=== PATIENT | female | born 1970 | race Caucasian/White ===

== ENCOUNTER 2017-01-08 09:09 | Emergency (ER) | payer BC ==
[~2017-01-08] VITALS: Ht 162.6 cm; Wt 62.1 kg
[~2017-01-08 09:09] MED LIST: BCP TD; LORTAB 5/500 501 TAB PO; VITAMINS
[2017-01-08 09:16] VITALS: BP 103/65; PULSE 72; TEMP 97.9
[2017-01-08] MEDS ORDERED: PAXIL 20MG20 MG PO (09:22)
[2017-01-08] MEDS ORDERED: [UNRECOGNIZED DRUG - REMARK] PO (09:23)
[2017-01-08 10:13] LABS: PH 5 (5-8); SQUAMOUS EPITHELIAL None Seen /hpf; URINE APPEARANCE Turbid; URINE BACTERIA Rare /hpf; URINE BILIRUBIN Negative (NEGATIVE); URINE BLOOD 3+ (NEGATIVE); URINE COLOR Amber; URINE GLUCOSE Negative (NEGATIVE); URINE KETONE Negative (NEGATIVE); URINE RBC >50 /hpf; URINE UROBILINOGEN Negative (NEGATIVE)
[2017-01-08 10:14] LABS: URINE WBC >50 /hpf
[2017-01-08 10:56] LABS: BASO % 0.3 % (0.0-2.0); GRAN # 10.8 (1.4-6.5); GRAN % 86.4 % (42.2-75.2); LYMPH # 0.8 (1.2-3.4); LYMPH % 6.2 % (20.0-51.0); MEAN CELL VOLUME 93 fl (80.0-100.0); MEAN CORPUSCULAR HGB CONC 34 g/dl (33.0-37.0); MEAN PLATELET VOLUME 10.1 fl (7.4-10.4); MONO # 0.8 (0.1-0.6); MONO % 6.6 % (1.7-9.3); PLATELET COUNT 217 K/mm3 (130-400); RED BLOOD COUNT 3.72 M/mm3 (4.10-5.30); REDCELL DISTRIBUTION WIDTH-CV 12.6 % (11.5-14.5); WHITE BLOOD COUNT 12.5 K/mm3 (4.8-10.8)
[2017-01-08 11:02] LABS: HEMATOCRIT 34.6 % (37.0-47.0); HEMOGLOBIN 11.7 g/dl (12.5-16.0); MEAN CORPUSCULAR HEMOGLOBIN 31 pg (27.0-31.0)
[2017-01-08] MEDS ORDERED: CEFTIN 250250 MG/TAB PO (11:21)
[2017-01-08] MEDS ORDERED: PYRIDIUM200 M1 PO (11:36)
[2017-01-08 12:18] LABS: ADJUSTED CALCIUM 9.5 mg/dL (8.4-10.2); ALBUMIN 3.7 gm/dL (3.5-5.0); BILIRUBIN,TOTAL 0.9 mg/dL (0.0-1.0); C-REACTIVE PROTEIN 0.9 mg/dL (0.0-0.9); CALCIUM 9.3 mg/dL (8.4-10.2); CREATININE, serum 0.6 mg/dL (0.52-1.25); TOTAL PROTEIN 6.5 gm/dL (6.4-8.2)
[2017-01-08 12:45] LABS: CHLAMYDIA/TRACH by PCR Female NOT DETECTED; NEISSERIA GON by PCR Female NOT DETECTED
== END 2017-01-08 12:08 | disposition home or self-care (01) ==
LOC: COL.ER 09:09
PROVIDERS: Physician Assistant
DX: N39.0 Urinary tract infection, site not specified (principal); Z32.02 Encounter for pregnancy test, result negative
CPT/HCPCS: J0696; J1885

== ENCOUNTER → 2017-08-07 | Outpatient (CLI) | payer BC ==
[~2017-08-07] MED LIST changes: +CEFTIN 250250 MG/TAB PO; +PAXIL 20MG20 MG PO; +PYRIDIUM200 M1 PO; +[UNRECOGNIZED DRUG - REMARK] PO
== END ==
LOC: MC.RAD 11:20
DX: Z12.31 Encounter for screening mammogram for malignant neoplasm of breast (principal); N64.89 Other specified disorders of breast

== ENCOUNTER → 2017-08-14 | Outpatient (CLI) | payer BC | LOC: MC.RAD 10:59 | DX: N64.89 Other specified disorders of breast (principal) ==

== ENCOUNTER 2017-09-10 21:21 | Emergency (ER) | payer SELFPAY ==
[~2017-09-10] VITALS: Ht 162.6 cm; Wt 70.5 kg
[2017-09-10 21:24] VITALS: BP 117/79; PULSE 73; TEMP 97.9
[2017-09-10] MEDS ORDERED: TRI-SPRINTEC 281 TAB (22:34)
== END 2017-09-10 22:42 | disposition home or self-care (01) ==
LOC: COL.ER 21:21
DX: S63.91XA Sprain of unspecified part of right wrist and hand, initial encounter (principal); S40.021A Contusion of right upper arm, initial encounter; W23.0XXA Caught, crushed, jammed, or pinched between moving objects, initial encounter; Y92.89 Other specified places as the place of occurrence of the external cause; Y99.0 Civilian activity done for income or pay

== ENCOUNTER → 2019-08-15 | Outpatient (CLI) | payer BC ==
[~2019-08-15] MED LIST changes: +TRI-SPRINTEC 281 TAB
== END ==
LOC: COL.RAD 07:16
DX: M48.02 Spinal stenosis, cervical region (principal); M54.12 Radiculopathy, cervical region

== ENCOUNTER → 2019-11-02 | Outpatient (CLI) | payer BC | LOC: ZCOL.LAB 14:45 | DX: Z20.828 Contact with and (suspected) exposure to other viral communicable diseases (principal) ==

== ENCOUNTER → 2019-11-24 | Outpatient (CLI) | payer BC | LOC: MC.RAD 09:25 | DX: N63.20 Unspecified lump in the left breast, unspecified quadrant (principal); Z80.3 Family history of malignant neoplasm of breast ==

== ENCOUNTER 2020-06-12 18:01 | Emergency (ER) | payer BC ==
[~2020-06-12] VITALS: Ht 162.6 cm; Wt 63.6 kg
[2020-06-12 18:04] VITALS: TEMP 98.3
[2020-06-12 20:16] VITALS: BP 134/80; PULSE 72
== END 2020-06-12 20:20 | disposition home or self-care (01) ==
LOC: COL.ER 18:01
DX: S86.911A Strain of unspecified muscle(s) and tendon(s) at lower leg level, right leg, initial encounter (principal); Z91.048 Other nonmedicinal substance allergy status; W01.0XXA Fall on same level from slipping, tripping and stumbling without subsequent striking against object, initial encounter; X50.1XXA Overexertion from prolonged static or awkward postures, initial encounter; Y93.01 Activity, walking, marching and hiking; Y92.410 Unspecified street and highway as the place of occurrence of the external cause
CPT/HCPCS: L1846

== ENCOUNTER → 2020-07-05 | Outpatient (CLI) | payer BC | LOC: MC.RAD 12:59 | DX: Z12.31 Encounter for screening mammogram for malignant neoplasm of breast (principal) ==

== ENCOUNTER 2021-02-18 20:19 | Emergency (ER) | payer BC ==
[~2021-02-18] VITALS: Ht 162.6 cm; Wt 68.2 kg
[2021-02-18 20:36] VITALS: TEMP 98.2
[2021-02-18 21:53] VITALS: BP 149/92; PULSE 67
== END 2021-02-18 21:53 | disposition home or self-care (01) ==
LOC: COL.ER 20:19
DX: S93.401A Sprain of unspecified ligament of right ankle, initial encounter (principal); S86.911A Strain of unspecified muscle(s) and tendon(s) at lower leg level, right leg, initial encounter; Y92.009 Unspecified place in unspecified non-institutional (private) residence as the place of occurrence of the external cause; W10.9XXA Fall (on) (from) unspecified stairs and steps, initial encounter

== ENCOUNTER 2021-09-09 19:46 | Emergency (ER) | payer OTHER, BC ==
[~2021-09-09] VITALS: Ht 162.6 cm; Wt 72.7 kg
[2021-09-09 19:55] VITALS: TEMP 98
[2021-09-09 20:17] LABS: BASO # 0.1 K/mm3 (0.0-0.2); BASO % 0.5 % (0.0-2.0); EOS # 0.1 K/mm3 (0.0-0.7); GRAN # 6.5 K/mm3 (1.4-6.5); GRAN % 68.5 % (42.2-75.2); HEMATOCRIT 37.9 % (37.0-47.0); HEMOGLOBIN 13.2 g/dl (12.5-16.0); LYMPH # 2.3 K/mm3 (1.2-3.4); LYMPH % 23.8 % (20.0-51.0); MEAN CELL VOLUME 90 fl (80.0-100.0); MEAN CORPUSCULAR HEMOGLOBIN 31 pg (27-31); MEAN CORPUSCULAR HGB CONC 35 g/dl (33.0-37.0); MEAN PLATELET VOLUME 9.5 fl (7.4-10.4); MONO # 0.6 K/mm3 (0.1-0.6); MONO % 5.9 % (1.7-9.3); PLATELET COUNT 312 K/mm3 (130-400); RED BLOOD COUNT 4.23 M/mm3 (4.10-5.30); REDCELL DISTRIBUTION WIDTH-CV 12.8 % (11.5-14.5)
[2021-09-09 20:34] LABS: ALBUMIN 3.6 gm/dL (3.5-5.0); BILIRUBIN,TOTAL 0.3 mg/dL (0.2-1.2); CALCIUM 8.8 mg/dL (8.4-10.2); CREATININE, serum 0.79 mg/dL (0.57-1.11); POTASSIUM 3.6 mmol/L (3.5-4.5); TOTAL PROTEIN 6.8 gm/dL (6.2-8.1)
[2021-09-09] MEDS ORDERED: PERCOCET 325 MG1 TA2 PO (23:33)
[2021-09-09] MEDS ORDERED: CEPHALEXIN500 M1 PO (23:33)
[2021-09-10 00:14] VITALS: BP 125/82; PULSE 75
== END 2021-09-10 00:24 | disposition home or self-care (01) ==
LOC: COL.ER 19:46
PROVIDERS: Personal Emergency Response Attendant
DX: S41.121A Laceration with foreign body of right upper arm, initial encounter (principal); S13.4XXA Sprain of ligaments of cervical spine, initial encounter; S20.219A Contusion of unspecified front wall of thorax, initial encounter; Z28.310 Unvaccinated for COVID-19; W20.8XXA Other cause of strike by thrown, projected or falling object, initial encounter
CPT/HCPCS: J2405; J3010; Q9967

== ENCOUNTER 2021-11-21 11:18 | Emergency (ER) | payer OTHER, BC ==
[~2021-11-21] VITALS: Ht 162.6 cm; Wt 75.9 kg
[~2021-11-21 11:18] MED LIST changes: +CEPHALEXIN500 M1 PO; +PERCOCET 325 MG1 TA2 PO
[2021-11-21 12:09] VITALS: TEMP 97.9
[2021-11-21] MEDS ORDERED: NEURONTIN100 MG/CAP PO (13:22)
[2021-11-21] MEDS ORDERED: IBU600 MG PO (13:22)
[2021-11-21 13:33] VITALS: BP 147/91; PULSE 86
== END 2021-11-21 13:33 | disposition home or self-care (01) ==
LOC: COL.ER 11:18
DX: M79.2 Neuralgia and neuritis, unspecified (principal); Z28.310 Unvaccinated for COVID-19

== ENCOUNTER 2023-01-02 11:44 | Emergency (ER) | payer SELFPAY ==
[~2023-01-02] VITALS: Ht 162.6 cm; Wt 77.3 kg
[~2023-01-02 11:44] MED LIST changes: +IBU600 MG PO; +NEURONTIN100 MG/CAP PO
[2023-01-02 11:53] VITALS: BP 110/72; TEMP 97.5
[2023-01-02 13:36] LABS: STREP SCREEN NEGATIVE
[2023-01-02 14:10] VITALS: PULSE 82
== END 2023-01-02 14:10 | disposition home or self-care (01) ==
LOC: COL.ER 11:44
PROVIDERS: Physician Assistant
DX: J02.8 Acute pharyngitis due to other specified organisms (principal); B97.89 Other viral agents as the cause of diseases classified elsewhere; Z20.822 Contact with and (suspected) exposure to COVID-19; Z28.311 Partially vaccinated for COVID-19